=== PATIENT | female | born 1980 ===

== ENCOUNTER 2020-08-14 03:56 | Emergency (ER) | payer SELFPAY ==
[2020-08-14] MEDS ORDERED: Ondansetron PF 4 MG/2 ML Vial ONE (04:16)
[2020-08-14] MEDS ORDERED: Morphine 4 MG/ML VIAL ONE (04:16)
[2020-08-14 04:35] LABS: #Basophils 0.1 thou/uL (0.0-0.2); #Eosinphils 0.4 thou/uL (0.0-0.7); #Lymphocytes 3.6 thou/uL (1.20-3.40); #Neutrophils 7.2 thou/uL (1.40-6.50); %Basophils 0.8 % (0.0-1.0); %Eosinophils 3.5 % (0.0-10.0); %Lymphocytes 29.1 % (21.0-51.0); %Monocytes 8.2 % (0.0-10.0); %Neutrophils 58.3 % (42.0-75.0); Hemoglobin 13.3 g/dL (12.0-16.0); Mean Corpuscular HGB CONC 34.9 g/dL (32.0-36.0); Mean Platelet Volume 8.3 fL (7.4-10.4); Platelet Count 255 thou/uL (130-400); RBC Distribution Width 11.3 % (11.5-14.5); Red Blood Cell (RBC) Count 3.81 mill/uL (4.20-5.40); White Blood Cell (WBC) Count 12.4 thou/uL (4.8-10.8)
[2020-08-14 04:58] LABS: ALT (SGPT) 12 U/L (8-55); AST (SGOT) 12 U/L (5-34); Alkaline Phosphatase 74 U/L (40-110); Anion Gap 12 mmol/L (10-20); BUN (Urea Nitrogen) 14 mg/dL (7.0-18.7); Bilirubin, Total 0.3 mg/dL (0.2-1.2); Calc. Creatinine Clearance 0 mL/min (70-130); Calcium 9.1 mg/dL (7.8-10.44); Carbon Dioxide 25 mmol/L (22-29); Chloride 105 mmol/L (98-107); Globulin 2.6 g/dL (2.4-3.5); Glucose 103 mg/dL (70-105); Potassium 3.5 mmol/L (3.5-5.1); Protein, Total 6.6 g/dL (6.0-8.3); Sodium 138 mmol/L (136-145)
[2020-08-14 05:33] LABS: BHCG - Serum Negative (NEGATIVE); Pregs Control Background? CLEAR/WHITE (CLR/WHITE); Pregs Control Bar Appear? YES (CONTROL BAR)
[2020-08-14] MEDS ORDERED: Fentanyl 100 MCG/2 ML VIAL ONE (07:04)
[2020-08-14] MEDS ORDERED: Lidocaine 1% PF 5 ML VIAL ONE (07:23)
[2020-08-14] MEDS ORDERED: Lorazepam 2 MG/ML VIAL ONE (07:23)
[2020-08-14] MEDS ORDERED: Iopamidol 370 76% 100 ML VIAL ONE (10:16)
== END 2020-08-14 08:39 | disposition home or self-care (01) ==
LOC: ERS 03:56
DX: L03.315 Cellulitis of perineum (principal); L02.215 Cutaneous abscess of perineum; F17.210 Nicotine dependence, cigarettes, uncomplicated
CPT/HCPCS: 36415; 56405; 74177; 80053; 84703; 85025; 96374; 96375; J2060; J2270; J2405; J3010; Q9967